=== PATIENT | male | born 1970 | race African-American/Black ===

== ENCOUNTER 2020-04-30 11:18 | Emergency (ER) | payer OTHER ==
[2020-04-30 16:30] LABS: SARS-CoV-2 MS2 Positive; SARS-CoV-2 N Gene Negative; SARS-CoV-2 S Gene Negative; SARS-CoV-2 by NAA Not Detected (NotDetected); SARS-CoV-2 orf1ab Negative
== END 2020-04-30 12:05 | disposition home or self-care (01) ==
LOC: ERS 11:18
DX: R09.89 Other specified symptoms and signs involving the circulatory and respiratory systems (principal); Z20.828 Contact with and (suspected) exposure to other viral communicable diseases
CPT/HCPCS: 87635; 99283; U0003

== ENCOUNTER 2020-06-13 12:42 | Outpatient (CLI) | payer OTHER ==
--- NOTE | 2020-06-13 13:41 | MRI ---
MRI Lumbar Spine WO Con History: Lumbar stenosis with neural claudication Comparison: Radiograph March 2020 Findings: The numbering basis of this examination the lumbosacral transitional vertebra will be terme d L5 with rudimentary T 13 ribs. Aortic contour is nonaneurysmal. No hydronephrosis. The large bilateral L5 transverse processes are partially fused with the sacrum. No significant edema on either side of the synchondrosis. Conus medullaris terminates near the inferior L1 endplate. Levels are as follows: L1/L2: Normal disc. No neural foraminal or spinal canal narrowing. L2/L3: Normal disc. No neural foraminal or spinal canal narrowing. L3/L4: Minimal posterior degenerative disc space height loss of very small disc bulge, greatest in th e lateral recesses. Mild hypertrophic facet arthrosis. No significant spinal canal narrowing. L4/L5: Mild posterior degenerative disc space height loss of moderate disc desiccation. Moderate post erior disc osteophyte complex with central and left paracentral annular fissure. Abutment of both exiting L4 and traversing L5 nerve roots. Mild hypertrophic facet arthrosis. Spinal canal measures sp inal canal measures 8 mm. L5/S1: Minimal disc desiccation and height loss. No significant neural foraminal or spinal canal narr owing. Impression: 1. 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 2. Due to the lumbosacral fusion at L5/S1, there is increased stress upon the disc space at L4/L5 whi ch does have a relatively large disc osteophyte abutting both exiting L4 and traversing L5 nerve roots.
== END 2020-06-13 12:43 | disposition home or self-care (01) ==
LOC: BICMRI 12:42
PROVIDERS: ATTEND Specialist
DX: M48.062 Spinal stenosis, lumbar region with neurogenic claudication (principal); Q76.49 Other congenital malformations of spine, not associated with scoliosis; M25.78 Osteophyte, vertebrae
CPT/HCPCS: 72148